=== PATIENT | female | born 1970 | race Caucasian/White ===

== ENCOUNTER 2017-12-06 13:37 | Emergency (ER) | payer OTHER ==
--- NOTE | 2017-12-06 16:47 | EDPHY ---
H & P Time Seen by Provider: 12/06/17 14:37 HPI/ROS: CHIEF COMPLAINT: Abdominal pain HISTORY OF PRESENT ILLNESS: 47-year-old female presents to the emergency department with severe left lower quadrant abdominal pain that has nearly completely resolved. The pain started abruptly while she was driving home from [place]. She has a history of previous ovarian cysts. She states that it felt "like labor pains". She has a history of a previous hysterectomy. She states that the pain has now completely resolved. She has no urinary symptoms. No back pain. No chest pain or difficulty breathing. No nausea or vomiting. She has never had pain like this in the past. REVIEW OF SYSTEMS: Constitutional: No fever, no chills. Eyes: No double or blurry vision. ENT: No sore throat. Respiratory: No cough, no shortness of breath. Cardiac: No chest pain. Gastrointestinal: Abdominal pain as above. No vomiting or diarrhea Genitourinary: No dysuria. Musculoskeletal: No neck or back pain. Skin: No rashes. Neurological: No headache. Past Medical/Surgical History: Partial hysterectomy Social History: and lives in [place] Smoking Status: Never smoked Physical Exam: General Appearance: Alert, no distress. No apparent distress. Eyes: Pupils equal and round. Extraocular motions are all intact. ENT: Mouth: Mucous membranes moist. Respiratory: No wheezing, rhonchi, or rales, lungs are clear to auscultation. Cardiovascular: Regular rate and rhythm. Gastrointestinal: Abdomen is soft. She had mild tenderness with palpation in the left lower quadrant. There is no rebound, guarding or masses noted. No CVA tenderness bilaterally. Neurological: Alert and oriented x 3, cranial nerves II through XII grossly intact Skin: Warm and dry, no rashes. Musculoskeletal: Nontender to palpate along the cervical, thoracic or lumbar spine. Neck is supple. Extremities: Full range of motion and no peripheral edema. Psychiatric: Patient is oriented X 3, there is no agitation. Constitutional: Initial Vital Signs Temperature (C) 36.9 C 12/06/17 14:00 Heart Rate 70 12/06/17 14:00 Respiratory Rate 16 12/06/17 14:00 Blood Pressure 122/83 H 12/06/17 14:00 O2 Sat (%) 97 12/06/17 14:00 O2 Delivery Mode Room Air Allergies/Adverse Reactions: No Known Allergies Allergy (Verified 12/06/17 14:00) Home Medications: Medication Instructions Recorded Multivitamins [Multivitamin (OTC)] 1 each PO DAILY 03/11/12 Estrogen,Con/M-Progest Acet 12/06/17 TESTOSTERONE 12/06/17 Medical Decision Making - Diagnostics Imaging Results: Imaging Impressions Pelvic/Renal Ultrasound 12/06/17 15:07 Impression: 1. No ovarian torsion or significant free fluid. 2. Partially collapsed cyst or follicle in the right ovary measuring 1.6 x 1.6 x 1.5 cm. 3. Prior hysterectomy. Findings and recommendations discussed with Emergency Department physician, Mandy Arthur PA-C, at 1614 hour, 12/06/2017. Final report concurs with initial preliminary interpretation. ED Course/Re-evaluation: 47-year-old female presents to the emergency department with abdominal pain. Patient's pain was coming back. I offered pelvic ultrasound given her symptoms and the patient agreed. Pelvic ultrasound reveals complex cyst in the right ovary that is small that will require further follow-up as an outpatient. No evidence of torsion. No free fluid in the pelvis. Urinalysis dip revealed ketones and some protein. On microscopic urine however there is 3+ bacteria. Urine cultures pending. Patient is comfortable being discharged home. I did offer CT scan the patient declined. The patient's pain is resolving. She is comfortable being discharged home. Differential Diagnosis: Including but not limited to ovarian cyst, ovarian torsion, urinary tract infection, pyelonephritis, kidney stone, diverticulitis - Data Points Laboratory Results: 12/06/17 17:05 Urine Color YELLOW Urine Appearance HAZY Urine pH 7.0 (5.0-7.5) Ur Specific [place] 1.020 (1.002-1.030) Urine Protein NEGATIVE (NEGATIVE) Urine Ketones 2+ H (NEGATIVE) Urine Blood NEGATIVE (NEGATIVE) Urine Nitrate NEGATIVE (NEGATIVE) Urine Bilirubin NEGATIVE (NEGATIVE) Urine Urobilinogen NEGATIVE EU EU (0.2-1.0) Ur Leukocyte Esterase NEGATIVE (NEGATIVE) Urine RBC 1-3 /hpf /hpf (0-3) Urine WBC NONE SEEN /hpf /hpf (0-3) Ur Epithelial Cells TRACE /lpf /lpf (NONE-1+) Urine Bacteria 3+ /hpf H /hpf (NONE SEEN) Urine Mucus TRACE /lpf /lpf (NONE-1+) Urine Glucose NEGATIVE (NEGATIVE) Departure - Departure Disposition: Home, Routine, Self-Care Clinical Impression: Abdominal pain Qualifiers: Abdominal location: left lower quadrant Qualified Code(s): R10.32 - Left lower quadrant pain Condition: Good Instructions: Acute Abdominal Pain (DC) Additional Instructions: Abdominal Pain: Return to the Emergency Department immediately for increasing pain, fever, vomiting, or if not completely better in 8-12 hours. Ibuprofen 600mg every 8 hours for pain as directed. Referrals: Margarita Helton MD [Primary Care Provider] - As per Instructions Valeria Logan MD [Medical Doctor] - As per Instructions (OBGYN on-call)
[2017-12-06 17:49] VITALS: BP 121/81; PULSE 75; RESP 18; TEMP 98.4; O2SAT 97
== END 2017-12-06 17:48 | disposition home or self-care (01) ==
DX: R10.32 Left lower quadrant pain (principal)

== ENCOUNTER → 2019-04-21 | Outpatient (CLI) | payer OTHER | LOC: FIMAGING 07:29 | PROVIDERS: ATTEND Nurse Practitioner Obstetrics & Gynecology | DX: Z12.31 Encounter for screening mammogram for malignant neoplasm of breast (principal); Z80.3 Family history of malignant neoplasm of breast ==